=== PATIENT | female | born 1990 | race Caucasian/White ===

== ENCOUNTER 2024-09-26 11:42 | Outpatient (OUT) | payer OTHER, SELFPAY ==
--- NOTE | 2024-09-26 | XR_ITS ---
[facility] [id number] Patient Name: AMANDA RAMIREZ MRN: [id number] date: 1990 Sex: F Assigned Patient Location: Current Patient Location: Accession/Order Number: [id number] Exam Date: 09/26/2024 11:49 Report Date: 09/27/2024 06:50 At the request of: WHIT DUMAS Procedure: XR knee LT 4V PROCEDURE: XR knee LT 4V HISTORY: LEFT KNEE PAIN COMPARISON: None. FINDINGS: BONES:Mild to moderate narrowing of the medial joint space. Small degenerative osteophytes along the articular margins of the medial and lateral compartments. SOFT TISSUES:No visible soft tissue swelling. EFFUSION:None visible. OTHER: Negative. XR/XR knee LT 4V IMPRESSION: 1. Narrowing of the medial joint space suggesting cartilage or meniscus injury/degeneration. Consider MRI for further evaluation.. Electronically authenticated by: WHIT WALKER Date: 09/27/2024 06:50
== END 2024-09-26 11:43 | disposition home or self-care (01) ==
LOC: EC 11:42
PROVIDERS: Visit Provider Orthopaedic Surgery
DX: M25.562 Pain in left knee (principal)
CPT/HCPCS: 73564